=== PATIENT | female | born 2000 | race Caucasian/White ===

== ENCOUNTER 2024-10-31 17:57 | Emergency (ER) | payer MEDICAID, SELFPAY ==
--- NOTE | ~2024-10-31 | CT_ITS ---
CLINICAL HISTORY: RLQ pain, H O adhesions, SBO, appendectomy, R SB CT abdomen and pelvis with contrast Comparison: US - US PELVIC OVARIAN DOPPLER - 10/31/24 20:47 EST Findings: The lung bases are clear. The liver, gallbladder, spleen, pancreas, kidneys and adrenal glands are normal in appearance. No bowel obstruction, pneumoperitoneum, or pneumatosis. Dominant 1.6 cm follicle in the left ovary. Right ovary and uterus unremarkable. Appendix is surgically absent. Trace free fluid in the pelvis. The bones are intact. IMPRESSION: No acute findings. This document has been electronically signed by: Silvio Alejandro MD on 11/01/2024 00:19:13
--- NOTE | ~2024-10-31 | US_ITS ---
CLINICAL HISTORY: abdominal pain US pelvis transabdominal and transvaginal with Doppler Comparison: None Findings: Transabdominal scanning performed for overall anatomy. Transvaginal scanning performed for additional detail. Anteverted uterus is 3.5 cm length. Normal myometrium. No endometrial lesion, 8 mm thickness. Right ovary 4.1 x 1.5 x 2.2 cm. Left ovary 4.1 x 2.8 x 3.2 cm. Thick-walled cyst in the left ovary measuring 2 cm likely represents a corpus luteum. Normal color Doppler with arterial/venous spectral tracing of both ovaries. Trace physiologic free fluid in the pelvis. IMPRESSION: 1. Normal pelvic ultrasound with Doppler. No evidence of ovarian torsion. This document has been electronically signed by: Carlitos Biggs MD on 10/31/2024 22:15:49
[2024-10-31 18:41] VITALS: BP 147/104; PULSE 89; RESP 16; TEMP 36.8; O2SAT 100; BMI 28.3
--- NOTE | 2024-10-31 18:46 | ED_ITS ---
HPI - General Adult General Chief complaint: Abdominal Pain Stated complaint: Abdominal pain Time Seen by Provider: 10/31/24 21:53 Source: patient Mode of arrival: ambulatory Limitations: no limitations History of Present Illness ED Provider: Dr. Robinson Chin HPI narrative: 23-year-old female with a history of hypertension, right lower quadrant bowel fused to abdominal wall secondary to appendicitis 08/09/2021, hernia repair, who presents emergency department for evaluation of sudden onset of right lower quadrant pain at 15:00 hours. The patient states the pain feels very similar to when she had her appendicitis. Patient states she had nausea with several episodes of vomiting. She denied fever, chills, chest pain, shortness of breath, myalgias, arthralgias or diarrhea. She states that she was sick 1 week prior with a flu-like illness but she states that those symptoms improved. Related Data Previous Rx's ?Medication ?Instructions ?Recorded morphine 15 mg immediate release 15 mg PO Q8H PRN pain #10 tabs 11/01/24 tablet ondansetron 4 mg disintegrating 4 mg PO Q6-8H PRN nausea and 11/01/24 tablet vomiting #14 tabs Allergies Allergy/AdvReac Type Severity Reaction Status Date / Time No Known Allergies Allergy Verified 10/31/24 18:42 [facility] Past Medical History [facility] Narrative: Social history: She denies tobacco, alcohol and drug use. Social History Social History Unable to assess alcohol history related to: Unknown Smoked in Last 30 Days: No Use of substances other than those prescribed or required for medical reasons: No Advance Directives: No Advance Directives Information Provided: No Do you have a plan to hurt others: No Plan Physical Exam ED Vital Signs: Vital Signs - 24 hr 10/31/24 18:41 11/01/24 01:49 Temperature 98.3 F 98.1 F Pulse Rate 89 80 Respiratory Rate 16 18 Blood Pressure 147/104 H 131/86 Pulse Oximetry 100 100 Oxygen Delivery Method Room Air Room Air BMI result Body Mass Index 28.3 Vital signs revealed an elevated blood pressure of 147/104 otherwise unremarkable Exam: General: Awake, alert in no distress Head: Normocephalic, atraumatic EENT: PERRL, Lids normal, sclera normal, conjunctiva normal, nose normal , ears normal, throat without erythema or exudates Neck: Supple, no adenopathy Lung: breath sounds symmetric, no wheezing, rales or rhonchi Chest: symmetric movement, nontender Heart: regular rate and rhythm, normal S1, S2 no murmurs or rubs Abdomen: soft, moderate right lower quadrant tenderness, mild to moderate suprapubic tenderness, normoactive bowel sounds, no rebound no voluntary or involuntary guarding Back: no vertebral tenderness, no CVAT Extremities: no deformities, moves all extremities symmetrically Neuro: Awake, alert, oriented, normal speech, cranial nerves intact, moves all extremities symmetrically Psych: Pleasant, cooperative Course Course Course Narrative: RME: 23-year-old female with pmh of abdominal hernia surgery presents to ED for sudden, right lower quadrant abdominal pain. Patient has had appendix removed years ago. Abdominal pain started few hours ago. Patient denies any urinary symptoms. Labs ordered. pelvic ultrasound ordered. Medications Administered Discontinued Medications Generic Name Dose Route Start Last Admin Trade Name Freq PRN Reason Stop Dose Admin Acetaminophen 975 mg 10/31/24 20:42 10/31/24 20:44 Acetaminophen 325 Mg Tablet PO 10/31/24 20:43 975 mg ONCE ONE Administration Sodium Chloride 1,000 mls @ 999 mls/hr 10/31/24 22:18 10/31/24 23:47 Ns IV 10/31/24 23:18 Infused .Q1H1M STA Infusion Iohexol 85 ml 10/31/24 23:18 10/31/24 23:18 Iohexol 350 Mg/Ml 100 Ml Infus..Btl IV 10/31/24 23:19 85 ml ONCE ONE Administration Ketorolac Tromethamine 15 mg 10/31/24 22:18 10/31/24 22:28 Ketorolac Tromethamine 15 Mg/Ml Vial IVPUSH 10/31/24 22:19 15 mg ONCE STA Administration Morphine Sulfate 4 mg 11/01/24 00:59 11/01/24 01:07 Morphine Sulfate 4 Mg/Ml Cartridge IVPUSH 11/01/24 01:00 4 mg ONCE STA Administration Protocol Ondansetron HCl 4 mg 10/31/24 22:18 10/31/24 22:28 Ondansetron Hcl 4 Mg/2 Ml Vial IVPUSH 10/31/24 22:19 4 mg ONCE ONE Administration Medical Decision Making Medical Decision Making MDM Narrative: 23-year-old female with a history of hypertension, right lower quadrant bowel fused to abdominal wall secondary to appendicitis 08/09/2021, hernia repair, who presents emergency department for evaluation of sudden onset of right lower quadrant pain at 15:00 hours associated with nausea, vomiting with severe pain.. The patient states the pain feels very similar to when she had her appendicitis. Patient did have a flu-like illness 1 week prior but these symptoms resolved. Vital signs were normal. Physical examination did reveal moderate to severe right lower quadrant tenderness with no CVA tenderness. Differential diagnosis: ?Includes but is not limited to small-bowel obstruction, renal colic, ureteral stone, hernia, diverticulitis, pancreatitis, ovarian cyst rupture, ovarian torsion, urinary tract infection, anemia, electrolyte abnormalities Course: 22:53 My interpretation patient's laboratory evaluation is as follows: CBC was normal. CMP was normal. Quantitative beta-hCG was below detectable limits. Urinalysis was negative. Influenza a was positive. COVID-19 and RSV were negative 01:01 CT scan of the abdomen pelvis with IV contrast did not reveal a clear cause for the patient's pain. The patient got some relief with the above treatment but her pain has not returned. Patient was ordered to get morphine 4 mg IV. At this time I do not have a clear etiology for the patient's pain and I did discuss this with her. Patient was advised to take Tylenol and ibuprofen for pain for pain not relieved by these medications she was prescribed morphine 15 mg every 6 hours as needed. Patient was also given a prescription for Zofran 4 mg ODT every 6-8 hours as needed for nausea and vomiting. She was given printed and verbal instructions and discharged home. Admission/Observation Consideration of admission/observation: Escalation of care including admission/observation considered (Yes) Lab Data MDM Lab Attestation statement: I reviewed the patient's lab results. 10/31/24 19:13 10/31/24 19:13 Labs: Lab Results 10/31/24 11/01/24 Range/Units 19:13 00:46 WBC 7.9 (4.8-10.8) X10*3/uL RBC 4.68 (4.20-5.50) X10*6/uL Hgb 14.0 (12.0-16.0) g/dl Hct 40.0 (37.0-47.0) % MCV 85.5 (80.0-98.0) fL MCH 29.9 (27.0-33.0) pg MCHC 35.0 (31.0-35.0) g/dl RDW 11.6 (11.0-16.0) % Plt Count 208 (160-400) X10*3/uL MPV 9.6 (9.4-12.3) fL Immature Gran % (Auto) 0.5 H (0.0-0.4) % Neut % (Auto) 67.0 (45-73) % Lymph % (Auto) 25.5 (20-40) % Leake % (Auto) 6.1 (2-11) % Eos % (Auto) 0.6 (0-4) % Baso % (Auto) 0.3 (0-2) % Lymph # (Auto) 2.0 (1.2-4.9) X10*3/uL Leake # (Auto) 0.5 (0.1-1.2) X10*3/uL Eos # (Auto) 0.1 (0.0-0.4) X10*3/uL Baso # (Auto) 0.0 (0.0-0.2) X10*3/uL Abs Immat Gran (auto) 0.04 H (0.00-0.03) X10*3/uL Absolute Neuts (auto) 5.3 (2.0-8.3) x10*3/uL Absolute Nucleated RBC 0.000 (0.0-0.012) X10*3/uL Nucleated RBC % (auto) 0.0 (0.0-0.2) /100WBC Sodium 144 (135-145) mmol/L Potassium 4.5 (3.3-5.1) mmol/L Chloride 108 (96-108) mmol/L Carbon Dioxide 26 (22-29) mmol/L Anion Gap 15 (12-20) BUN 8 L (9-16) mg/dL Creatinine 0.67 (0.5-1.4) mg/dL Estim Creat Clear Calc 132.9 Estimated GFR > 60 Random Glucose 97 (60-115) mg/dL Calcium 8.9 (8.4-10.2) mg/dL Total Bilirubin 0.4 (0.0-1.0) mg/dL AST 27 (5-31) U/L ALT 39 H (0-31) U/L Alkaline Phosphatase 89 (39-117) U/L Total Protein 7.4 (6.5-8.0) g/dL Albumin 4.4 (3.5-5.0) g/dL Beta HCG, Quant < 2 mIU/mL Urine Color Yellow Urine Appearance Clear Urine pH 7.5 (5.0-9.0) Ur Specific Cameron >= 1.030 H (1.005-1.025) Urine Protein Negative (Neg-Trace) mg/dL Urine Glucose (UA) Negative (Negative) mg/dL Urine Ketones 15 (Negative) mg/dL Urine Blood Negative (Negative) Urine Nitrite Negative (Negative) Ur Leukocyte Esterase Negative (Negative) Influenza Type A (PCR) POSITIVE A (Negative) Influenza Type B (PCR) NEGATIVE (Negative) RSV RNA Qual (PCR) NEGATIVE (Negative) SARS-CoV-2 RNA (RT-PCR) NEGATIVE (Negative) S. pyogenes GrpA CHRIS Negative (Negative) Radiology Impression Discussion of test interpretation with radiology: I have reviewed the radiologist's reading. Radiologist Impression: US pelvis transabdominal and transvaginal with Doppler Comparison: None Findings: Transabdominal scanning performed for overall anatomy. Transvaginal scanning performed for additional detail. Anteverted uterus is 3.5 cm length. Normal myometrium. No endometrial lesion, 8 mm thickness. Right ovary 4.1 x 1.5 x 2.2 cm. Left ovary 4.1 x 2.8 x 3.2 cm. Thick-walled cyst in the left ovary measuring 2 cm likely represents a corpus luteum. Normal color Doppler with arterial/venous spectral tracing of both ovaries. Trace physiologic free fluid in the pelvis. IMPRESSION: 1. Normal pelvic ultrasound with Doppler. No evidence of ovarian torsion. This document has been electronically signed by: Carlitos Biggs MD on 10/31/2024 22:15:49 CT abdomen and pelvis with contrast Comparison: US - US PELVIC OVARIAN DOPPLER - 10/31/24 20:47 EST Findings: The lung bases are clear. The liver, gallbladder, spleen, pancreas, kidneys and adrenal glands are normal in appearance. No bowel obstruction, pneumoperitoneum, or pneumatosis. Dominant 1.6 cm follicle in the left ovary. Right ovary and uterus unremarkable. Appendix is surgically absent. Trace free fluid in the pelvis. The bones are intact. IMPRESSION: No acute findings. This document has been electronically signed by: Silvio Alejandro MD on 11/01/2024 00:19:13 Prescription Management I considered prescription management with: Pain Medication (Morphine) and Other Antiemetic: Zofran ODT Discharge Plan Discharge Clinical Impression: Abdominal pain Patient Disposition: Home, Self-Care Instructions: Abdominal Pain (ED) Additional Instructions: Your blood work was unremarkable. Your COVID and RSV tests were negative. Your influenza test was positive for influenza A but I think that this test reflects the flu-like illness that you had a week ago and sometimes the flu test can stay positive even though you symptoms have gone away. The CT scan of your abdomen pelvis without IV contrast did not reveal a clear cause for your pain. Your pelvic ultrasound did not reveal any ovarian cysts or twisting of your ovaries as the cause of your pain. At this time I do not have a clear cause for your pain. Take ibuprofen 200 mg pills, 2 pills every 6 hours as needed for pain. Take Tylenol (acetaminophen) 2 pills every 6 hours as needed for pain. For pain not relieved by ibuprofen or Tylenol take morphine 15 mg pills, 1 pill every 6 hours as needed for pain. This medication will make you sleepy, do not drive or work while taking this medication. Morphine is a narcotic medication and can be addicting. If you are concerned about addiction you can ask the pharmacist for less pills or do not get this prescription filled. Take Zofran ODT 4 mg pills, 1 pill dissolved in your mouth every 8 hours as needed for nausea and vomiting. For the next 24 hours, stay on a MILLA diet (bananas, rice, applesauce, tea and toast). Follow-up with your doctor in 2 days. Please return to the emergency department if your symptoms get worse or if you develop any symptoms that are concerning to you. Prescriptions: New morphine 15 mg tablet 15 mg PO Q8H PRN (Reason: pain) Qty: 10 0RF Rx Instructions: Partial Fill upon patient request. ondansetron 4 mg tablet,disintegrating 4 mg PO Q6-8H PRN (Reason: nausea and vomiting) Qty: 14 0RF Interventions: ED Discharge Assessment Last Done: 11/01/24 01:49 Discharge Date/Time: 11/01/24 01:50 Print Language: Latvian
[2024-10-31 19:17] LABS: MANUAL DIFF FLAG NO
[2024-10-31 19:19] LABS: Basophils Percent Auto 0.3 % (0-2); Eosinophils Absolute Auto 0.1 X10*3/uL (0.0-0.4); Eosinophils Percent Auto 0.6 % (0-4); Imm Gran Abs Auto 0.04 X10*3/uL (0.00-0.03); Imm Gran Pct Auto 0.5 % (0.0-0.4); Lymphocytes Percent Auto 25.5 % (20-40); Mean Corpuscular Hemoglobin 29.9 pg (27.0-33.0); Mean Corpuscular Volume 85.5 fL (80.0-98.0); Mean Platelet Volume 9.6 fL (9.4-12.3); Monocytes Absolute Auto 0.5 X10*3/uL (0.1-1.2); Monocytes Percent Auto 6.1 % (2-11); Neutrophils Absolute Auto 5.3 x10*3/uL (2.0-8.3); Platelet Count 208 X10*3/uL (160-400); Red Blood Count 4.68 X10*6/uL (4.20-5.50); Red Cell Distribution Width 11.6 % (11.0-16.0); White Blood Count 7.9 X10*3/uL (4.8-10.8)
[2024-10-31 19:27] LABS: IDNOW Serial# 08D9AD1C; Strep A Nucleic Acid Negative (Negative)
[2024-10-31 19:40] LABS: Alanine Aminotransferase 39 U/L (0-31); Albumin Level 4.4 g/dL (3.5-5.0); Alkaline Phosphatase 89 U/L (39-117); Anion Gap 15 (12-20); Aspartate Amino Transferase 27 U/L (5-31); Bilirubin Total 0.4 mg/dL (0.0-1.0); Blood Urea Nitrogen 8 mg/dL (9-16); Calcium 8.9 mg/dL (8.4-10.2); Carbon Dioxide 26 mmol/L (22-29); Chloride 108 mmol/L (96-108); Creatinine Clr Calc Pharmacy 132.9; Estimated Glomerular Filt Rate > 60; Glucose Random 97 mg/dL (60-115); HCG Quantitative < 2 mIU/mL; Potassium 4.5 mmol/L (3.3-5.1); Sodium 144 mmol/L (135-145); Total Protein 7.4 g/dL (6.5-8.0)
[2024-10-31 19:55] LABS: Influenza A PCR POSITIVE (Negative); Influenza B PCR NEGATIVE (Negative); Resp Syncy Virus RNA Qual PCR NEGATIVE (Negative); SARS COV2 PCR INHOUSE NEGATIVE (Negative)
[2024-10-31] MEDS: Acetaminophen 325 MG TABLET 975 MG PO (20:44)
--- OUTSIDE RECORDS SUMMARY | 2024-10-31 22:20 | XMS_ITS | Clinical Summary ---
Author Organization [facility] ity Address [address] [place] [address] Care Team Providers Care Law Examiner Name Role Phone Unavailable Primary Care Provider Unavailabl e Social History Tobacco Use Types Packs/Day Years Used Date Smoking Tobacco: Never Assessed Comments Unknown Sex and Gender Information Value Date Recorded Sex Assigned at Not on file Legal Sex Female 2:38 PM EST Gender Identity Not on file Sexual Orientation Not on file Plan of Treatment Health Maintenance Due Date Last Done Comments Gonorrhea/Chlamydia Screening 1999 HPV Vaccines (1 - 3-dose series) 12/02/2014 DTaP,Tdap,and Td Vaccines (1 - Tdap) 12/02/2018 Hepatitis B Vaccines (1 of 3 - 19+ 3-dose series) 12/02/2018 Cervical Cancer Screening: P ap Smear 12/02/2020 COVID-19 Vaccine ( - 2023-2 5 season) 2024 Influenza Vaccine (#1) 2024 HIB Vaccines Aged Out No longer eligi ble based on patient's age to complete this topic Hepatitis A Vaccines Aged Out No long er eligible based on patient's age to complete this topic IPV Vaccines Aged Out No longer eligi ble based on patient's age to complete this topic MMR Vaccines Aged Out No longer eligi ble based on patient's age to complete this topic Meningococcal ACWY Vaccine Aged Out N o longer eligible based on patient's age to complete this topic Pneumococcal Vaccine: Pediat rics (0 to 5 Years) and At-Risk Patients (6 to 64 Years) Aged Out No longer eligible b ased on patient's age to complete this topic RSV Immunization Patients Un rachael 20 months Aged Out No longer eligible b ased on patient's age to complete this topic Varicella Vaccines Aged Out No longer eligible based on patient's age to complete this topic
--- OUTSIDE RECORDS SUMMARY | 2024-10-31 22:20 | XMS_ITS | Encounter Summary ---
Author Organization [facility] Address [address] [place] [address] Phone Care Team Providers Care Public Health Doctor Name Role Phone Unavailable Primary Care Provider Unavailabl e Encounter Details Date Type Department Care Team (Late st Contact Info) Description 05/06/2017 Conversion Encounter [facility] - [address] [address] Social History Tobacco Use Types Packs/Day Years Used Date Smoking Tobacco: Never Comments:Never smoker Comments Unknown Sex and Gender Information Value Date Recorded Sex Assigned at Not on file Legal Sex Female 5:13 PM EDT Gender Identity Not on file Sexual Orientation Not on file documented as of this encounter Plan of Treatment Not on file documented as of this encounter Visit Diagnoses Not on filedocumented in this encounter
--- OUTSIDE RECORDS SUMMARY | 2024-10-31 22:20 | XMS_ITS | Encounter Summary ---
Author Organization [facility] Address [address] [place], [place] [id number] Phone Care Team Providers Care Bucket Chucker Name Role Phone Unavailable Primary Care Provider Unavailabl e Encounter Details Date Type Department Care Team (Late st Contact Info) Description 12/06/2013 Documentation [facility] [address] [place], [place] [id number] Family Medicine, Physician [address] [place] [address] Social History Tobacco Use Types Packs/Day Years [...]
--- OUTSIDE RECORDS SUMMARY | 2024-10-31 22:20 | XMS_ITS | Encounter Summary ---
Author Organization [facility] Address [address] [place], [place] [id number] Phone Care Team Providers Care Academic Intern Name Role Phone Unavailable Primary Care Provider Unavailabl e Encounter Details Date Type Department Care Team (Late st Contact Info) Description 03/30/2017 Documentation [facility] [address] [place], [place] [id number] Family Medicine, Physician [facility] [place] [address] Social History Tobacco Use Types Packs/Day Years [...]
--- OUTSIDE RECORDS SUMMARY | 2024-10-31 22:20 | XMS_ITS | Clinical Summary ---
Author Organization [facility] Address [address] [place] [address] Phone Care Team Providers Care Patrol Community Service Officer Name Role Phone Unavailable Primary Care Provider Unavailabl e Allergies No known active allergies Medications [id number] 0.18/0.215/0.25 MG-25 MCG per tabletIndications:C ounseling for control, oral contraceptives TAKE 1 TABLET BY MOUTH EVERY DAY 28 tablet 2 9 Active Active Problems Problem Noted Date Diagnosed Date Childhood obesity 02/12/2012 Assessment & Plan (03/18/2018 2:39 PM EDT): Resolved Immunizations Immunization Administration Dates Next Due DTaP 5 12/05/2003, 2,07/02/2000,05/03,03/16/2000 HPV Vaccine 9 Valent 03/18/2018 Hep A, ped/adol 03/18/2018,07/02/2016 Hep B, ped/adol 08/11/2000,02/09/2000,1999 Hib (PRP-T) 02/21/2001, 0,05/03/2000,03/16 IPV 12/05/2003, 0,05/03/2000,03/16 Influenza, injectable, quadr ivalent, preservative free 03/18/2018 MMR 12/05/2003,02/21/2001 Meningococcal Conj (Menactra) MCV4P 07/02/2016,0 02/12/2012 Tdap 02/12/2012 Varicella 12/23/2007,09/30/2001 Family History Medical History Relation Name Comments Diabetes Father Jonh Relation Name Status Comments Father Jonh Alive Father: Osteoar thritis, Diabetes mellitus, high cholesterol Maternal Grandfather Materna l grandfather: Hypertension Maternal Grandmother Materna l grandmother: Hypertension Mother Julissa Alive Mother: Bipolar disorder, Osteoarthritis, Manicdepressive Other 1 No family histo ry of Thrombophilia, Family history of Cancer, lung, Family history of CVA (Stroke), Family history of Cancer, colon, Family history of Cancer, breast Other 2 No family histo ry of Thrombophilia, Family history of Cancer, lung, Family history of CVA (Stroke), Family history of Cancer, colon, Family history of Cancer, breast Paternal Grandmother Sharath l grandmother: Thyroid disease Social History Tobacco Use Types Packs/Day Years Used Date Smoking Tobacco: Never Smokeless Tobacco: Never Comments:Never smoker Alcohol Use Standard Drinks/Week Comments No 0 (1 standard drink = 0.6 oz pur e alcohol) Comments No Sex and Gender Information Value Date Recorded Sex Assigned at Not on file Legal Sex Female 5:13 PM EDT Gender Identity Not on file Sexual Orientation Not on file Last Filed Vital Signs Vital Sign Reading Time Taken Comments Blood Pressure 125/74 03/18/2018 1:55 PM EDT Pulse 91 03/18/2018 1:55 PM EDT Temperature 36.7 ??C (98 ??F) 07/02/2016 12:00 AM EDT Respiratory Rate - - Oxygen Saturation - - Inhaled Oxygen Concentration - - Weight 60.4 kg (133 lb 3.2 oz) 03/18/2018 1:55 P M EDT Height 163.8 cm (5' 4.5 ) 03/18/2018 1:55 PM EDT Body Mass Index 22.51 03/18/2018 1:55 PM EDT Plan of Treatment Health Maintenance Due Date Last Done Comments Consider Men B Vaccine (1 of 2 - Bexsero 2-dose series) 2015 HPV Vaccines (2 - 3-dose series) 04/15/2018 03/18/2018 DTaP,Tdap,and Td Vaccines (7 - Td or Tdap) 02/11/2022 02/12/2012, 12/05/2003, 09/30/2001, Additional history exists Influenza Vaccines (#1) 2024 03/18/2018 COVID-19 Vaccine (1 - season) 2024 Hepatitis B Vaccines Completed 08/11/2000, 02/09/2000, 1999 HIB Vaccines Completed 02/21/2001, 06/20, 05/03/2000, Additional history exists IPV Vaccines Completed 12/05/2003, 06/20, 05/03/2000, Additional history exists MMR Vaccines Completed 12/05/2003, 02/21/2001 Varicella Vaccines Completed 12/23/2007, 09/30/2001 Meningococcal Vaccine Completed 07/02/2016, 012 Hepatitis A Vaccines Completed 03/18/2018, 07/02/20 16 Men B Vaccine Aged Out No longer elig ible based on patient's age to complete this topic Pneumococcal Vaccine Aged Out No long er eligible based on patient's age to complete this topic Procedures * Due to [place] [employer] law, this organization might not be sharing sensitive test results. Procedure Name Priority Date/Time Associated Diagnosis Comments CHLAMYDIA AND GONORRHEA, AMPLIFIED Routine 07/03/2016 2:17 PM EDT from Last 3 Months or Most Recently Relevant to Health Maintenance Results * Due to [place] [employer] law, this organization might not be sharing sensitive test results. * Chlamydia and Gonorrhoea, Amplified (07/03/2016 2:17 PM EDT) [facility] URINE GC AMP PROBE NEGATIVE [facility] Comment: No Neisseria Gonorrhoeae RNA detected in this patient's sample (REFERENCE RANGE/NORMAL VALUE: NOT DETECTED) NOTE: This test uses arc welder-mediated amplification method to detect rRNA from C.Trachomatis and N.Gonorrhoeae. A negative result does not preclude infection. In the case of a negative urine result, testing of an endocervical(female) or urethral(male) specimen is recommended if there is high clinical suspicion of infection. The performance characteristics of this test have not been evaluated in children. The Aptima Combo2 assay is not intended for the evaluation of suspected sexual abuse or for other medico-legal indications. The ordering provider should assess if the patient had consensual sex without risk of sexual abuse. Consult the [facility] if needed. Contact phone number . Therapeutic failure or success cannot be determined with the Aptima Combo2 assay since nucleic acid may persist following appropriate antimicrobial therapy. The Centers for Disease Control and Prevention (CDC) recommends confirmatory retesting using culture or a different nucleic acid amplification test when positive results occur, if indicated. Testing performed or reported by [facility], a Service of [facility], [address] [place] [address] CLIA ??[id number] Hira Montes MD, PhD, Retail Analyst URINE CHLAMYDIA AMP PROBE NEGATIVE [facility] Comment: No Chlamydia Trachomatis RNA detected in this patient's sample (REFERENCE RANGE/NORMAL VALUE: NOT DETECTED) 07/03/2016 2:17 PM EDT Narrative [facility] - 07/03/2016 2:17 PM EDT URINE CHLAMYDIA GC AMP PROBE us Le Gaviria MD LAB MICROBIOLOGY - GENERAL ORD ERABLES Final Result [facility] [address] [place] [address], from Last 3 Months or Most Recently Relevant to Health Maintenance Insurance [facility] NON PCC
--- OUTSIDE RECORDS SUMMARY | 2024-10-31 22:20 | XMS_ITS | Encounter Summary ---
Author Organization [facility] Address [address] [place], [place] [phone] Phone Care Team Providers Care Helper Animal Laboratory Name Role Phone Unavailable Primary Care Provider Unavailabl e Encounter Details Date Type Department Care Team (Late st Contact Info) Description 03/26/2017 Documentation [facility] [address] [place], [place] [phone] Family Medicine, [place] [address] Social History Tobacco Use Types Packs/Day Years [...]
[2024-10-31] MEDS: ondansetron HCL 4 MG/2 ML VIAL IVPUSH (22:28)
[2024-10-31] MEDS: Ketorolac Tromethamine 15 MG/ML VIAL IVPUSH (22:28)
[2024-10-31] MEDS: 0.9 % Sodium Chloride 1,000 ML 999 ML IV (22:28)
[2024-10-31] MEDS: iohexoL 350 MG/ML 100 ML INFUS..BTL 85 ML IV (23:18)
[2024-11-01 00:52] LABS: Appearance Urine Clear; Color Urine Yellow; Glucose Urine UA Negative (Negative); Leukocyte Esterase Urine Negative (Negative); Nitrite Urine Negative (Negative); PH 7.5 (5.0-9.0); Specific Gravity - Urine >= 1.030 (1.005-1.025); Urine Blood Negative (Negative); Urine Ketones 15 mg/dL (Negative); Urine Protein Negative (Neg-Trace)
[2024-11-01] MEDS: Morphine Sulfate 4 MG/ML CARTRIDGE IVPUSH (01:07)
--- NOTE | 2024-11-01 01:09 | PC.NURSE ---
pt ambulated to and from bathroom to collect urine sample, on return states pain is worse back up to 04/29. MD resendiz made aware, pt medicated per nov. call medeiros within reach
[2024-11-01 01:49] VITALS: BP 131/86; PULSE 80; RESP 18; TEMP 36.7; O2SAT 100
== END 2024-11-01 01:50 | disposition home or self-care (01) ==
PROVIDERS: Physician Assistant; Emergency Provider Emergency Medicine Emergency Medical Services
DX: R10.2 Pelvic and perineal pain (principal); R10.31 Right lower quadrant pain; R11.2 Nausea with vomiting, unspecified; Z79.899 Other long term (current) drug therapy; Z03.818 Encounter for observation for suspected exposure to other biological agents ruled out
CPT/HCPCS: 0241U; 74177; 76830; 76856; 80053; 81003; 84702; 85025; 87651; 93975; 96361; 96374; 96375; 99284; J1885; J2270; J2405; Q9967

== ENCOUNTER → 2024-10-31 20:42 | Outpatient (BNV) | payer MEDICAID, SELFPAY | PROVIDERS: Emergency Provider Emergency Medicine Emergency Medical Services; Visit Provider Student in an Organized Health Care Education/Training Program | DX: R10.9 Unspecified abdominal pain (principal) | CPT/HCPCS: 74177; 76830; 76856 ==